=== PATIENT | female | born 1970 ===

== ENCOUNTER 2018-07-08 06:39 | Day surgery (SDC) | payer OTHER | END 2018-07-08 11:27 | disposition home or self-care (01) | LOC: AMB-ENDOS 06:39 | DX: N82.3 Fistula of vagina to large intestine (principal) ==

== ENCOUNTER → 2018-07-16 | Outpatient (CLI) | payer OTHER | END | disposition home or self-care (01) | LOC: RX STUDY 08:57 | DX: N76.0 Acute vaginitis (principal) ==

== ENCOUNTER → 2018-10-06 | Day surgery (SDC) | payer OTHER ==
[~2018-10-06] MED LIST: BACTRIM DS TAB1 EACH PO; HYDROCHLOROTH12.5 MG; INTESTINEX680 M1; LISINOPRIL5 MG; METOCLOPRAMIDE10 MG PO; PERCOCET 5-3251 EACH PO
== END | disposition home or self-care (01) ==
LOC: ADM 09-30 14:00 → CIR.AMB 05:49
DX: K43.6 Other and unspecified ventral hernia with obstruction, without gangrene (principal)